=== PATIENT | female | born 1945 | race Caucasian/White ===

== ENCOUNTER → 2016-11-05 | Outpatient (REF) | payer MEDICARE, OTHER | LOC: M LAB REF 11:54 | PROVIDERS: ATTEND Physician Assistant Medical | DX: R30.0 Dysuria (principal) ==

== ENCOUNTER 2017-03-15 09:22 | Outpatient (REF) | payer MEDICARE, OTHER ==
[2017-04-12 21:51] LABS: APPEARANCE, URINE CLEAR (CLEAR); BACTERIA, URINE AUTO NEGATIVE (NEGATIVE); BILIRUBIN, URINE AUTO NEGATIVE (NEGATIVE); BLOOD, URINE BLOOD NEGATIVE (NEGATIVE); COLOR, URINE COLORLESS (YELLOW); GLUCOSE, URINE (UA) AUTO NEGATIVE (NEGATIVE); KETONE, URINE AUTO NEGATIVE (NEGATIVE); LEUKOCYTE ESTERASE, URINE AUTO NEGATIVE (NEGATIVE); NITRITE, URINE AUTO NEGATIVE (NEGATIVE); PROTEIN, URINE AUTO NEGATIVE (NEGATIVE); RBC, URINE AUTO 0 /HPF (0-3); SPECIFIC GRAVITY URINE AUTO 1.002 (1.002-1.035); SQUAMOUS EPITHELIAL CELL UR AU 2 /HPF (0-6); UROBILINOGEN, URINE AUTO 0.2 mg/dL (0.0-2.0); WBC, URINE AUTO 0 /HPF (0-3)
== END 2017-04-12 ==
LOC: M LAB REF 09:22
DX: N39.0 Urinary tract infection, site not specified (principal)
CPT/HCPCS: 81001

== ENCOUNTER → 2017-03-29 | Outpatient (REF) | payer MEDICARE, OTHER ==
[2017-03-29 22:33] LABS: APPEARANCE, URINE HAZY (CLEAR); BACTERIA, URINE AUTO 1+ (NEGATIVE); BILIRUBIN, URINE AUTO NEGATIVE (NEGATIVE); BLOOD, URINE BLOOD 2+ (NEGATIVE); COLOR, URINE YELLOW (YELLOW); GLUCOSE, URINE (UA) AUTO NEGATIVE (NEGATIVE); KETONE, URINE AUTO NEGATIVE (NEGATIVE); LEUKOCYTE ESTERASE, URINE AUTO 3+ (NEGATIVE); MUCUS, URINE SMALL (NEGATIVE); NITRITE, URINE AUTO NEGATIVE (NEGATIVE); PROTEIN, URINE AUTO NEGATIVE (NEGATIVE); RBC, URINE AUTO 4 /HPF (0-3); SPECIFIC GRAVITY URINE AUTO 1.017 (1.002-1.035); SQUAMOUS EPITHELIAL CELL UR AU 1 /HPF (0-6); UROBILINOGEN, URINE AUTO 0.2 mg/dL (0.0-2.0); WBC, URINE AUTO TNTC /HPF (0-3)
== END ==
LOC: M LAB REF 08:51
DX: N39.0 Urinary tract infection, site not specified (principal)
CPT/HCPCS: 81001

== ENCOUNTER → 2017-05-04 | Outpatient (REF) | payer MEDICARE, OTHER | LOC: M LAB REF 16:47 | DX: N39.0 Urinary tract infection, site not specified (principal); N76.0 Acute vaginitis | CPT/HCPCS: 87086 ==

== ENCOUNTER → 2017-05-19 | Outpatient (REF) | payer MEDICARE, OTHER ==
[2017-05-19 15:06] LABS: APPEARANCE, URINE HAZY (CLEAR); BACTERIA, URINE AUTO NEGATIVE (NEGATIVE); BILIRUBIN, URINE AUTO NEGATIVE (NEGATIVE); BLOOD, URINE BLOOD NEGATIVE (NEGATIVE); COLOR, URINE YELLOW (YELLOW); GLUCOSE, URINE (UA) AUTO NEGATIVE (NEGATIVE); KETONE, URINE AUTO NEGATIVE (NEGATIVE); LEUKOCYTE ESTERASE, URINE AUTO TRACE (NEGATIVE); NITRITE, URINE AUTO NEGATIVE (NEGATIVE); PROTEIN, URINE AUTO NEGATIVE (NEGATIVE); RBC, URINE AUTO 1 /HPF (0-3); SPECIFIC GRAVITY URINE AUTO 1.017 (1.002-1.035); SQUAMOUS EPITHELIAL CELL UR AU 10 /HPF (0-6); UROBILINOGEN, URINE AUTO 0.2 mg/dL (0.0-2.0); WBC, URINE AUTO 4 /HPF (0-3)
== END ==
LOC: M SMT 13:30
DX: R30.0 Dysuria (principal)
CPT/HCPCS: 81001

== ENCOUNTER → 2018-05-11 | Outpatient (REF) | payer MEDICARE, OTHER ==
[2018-05-11 14:06] LABS: APPEARANCE, URINE TURBID (CLEAR); BACTERIA, URINE AUTO 1+ (NEGATIVE); BILIRUBIN, URINE AUTO NEGATIVE (NEGATIVE); BLOOD, URINE BLOOD 3+ (NEGATIVE); COLOR, URINE AMBER (YELLOW); GLUCOSE, URINE (UA) AUTO NEGATIVE (NEGATIVE); KETONE, URINE AUTO TRACE mg/dL (NEGATIVE); LEUKOCYTE ESTERASE, URINE AUTO 3+ (NEGATIVE); MUCUS, URINE SMALL (NEGATIVE); NITRITE, URINE AUTO POSITIVE (NEGATIVE); PROTEIN, URINE AUTO 2+ mg/dL (NEGATIVE); RBC, URINE AUTO TNTC /HPF (0-3); SPECIFIC GRAVITY URINE AUTO 1.023 (1.002-1.035); SQUAMOUS EPITHELIAL CELL UR AU 31 /HPF (0-6); TRANSITIONAL EPITHELIAL AUTO 10 /HPF; WBC, URINE AUTO TNTC /HPF (0-3)
== END ==
LOC: M LAB REF 12:31
PROVIDERS: ATTEND Physician Assistant Medical
DX: N39.0 Urinary tract infection, site not specified (principal)

== ENCOUNTER → 2018-05-24 | Outpatient (REF) | payer MEDICARE, OTHER | LOC: M LAB REF 16:16 | PROVIDERS: ATTEND Internal Medicine | DX: N39.0 Urinary tract infection, site not specified (principal) ==

== ENCOUNTER → 2018-12-21 | Outpatient (REF) | payer MEDICARE, OTHER | LOC: M LAB REF 11:59 | PROVIDERS: ATTEND Internal Medicine | DX: J45.909 Unspecified asthma, uncomplicated (principal); N95.2 Postmenopausal atrophic vaginitis ==

== ENCOUNTER → 2019-01-18 | Outpatient (CLI) | payer MEDICARE, OTHER ==
--- NOTE | 2019-01-18 16:45 | REP ---
MRI cervical spine: New 01/18/2019. Indication: Cervical radiculopathy. Comparison: None. Technique: Multiplanar short and long TR sequences of the cervical spine were performed without IV Gadolinium. Findings: There is minimal retrolisthesis of C5 on C6 and C6 on C7. No worrisome marrow signal is present. The visualized cord is normal. The craniocervical junction is unremarkable. The vertebral artery flow voids are intact. C2/C3: There is no focal disc herniation or significant spinal canal / neural foraminal narrowing. C3/C4: Predominantly left-sided uncovertebral and facet hypertrophy results in moderate left neural foraminal narrowing. There is mild spinal canal narrowing particularly on the left. C4/C5: Right greater than left uncovertebral and facet hypertrophy are present with mild right neural foraminal narrowing. There is effacement of the ventral thecal sac. C5/C6: Diffuse disc osteophyte complex is present with moderate left and mild right neural foraminal narrowing. There is effacement of the ventral thecal sac. C6/C7: Diffuse disc osteophyte is present with mild to moderate left and mild right neural foraminal narrowing. There is no significant narrowing of the spinal canal. C7/T1: There is no focal disc herniation or significant spinal canal / neural foraminal narrowing. Impression: Multilevel degenerative sequelae of the cervical spine as described without significant spinal canal narrowing/cord compression. Please correlate with radicular level. Electronically Signed by Alfred Anglin DO 01/18/2019 04:37 P
--- NOTE | 2019-01-18 17:00 | REP ---
MRI lumbar spine: 01/18/2019. Indication: Low back pain. Lumbar radiculopathy. Comparison: 02/13/2011. Technique: Multiplanar short and long TR sequences of the lumbar spine were obtained without IV Gadolinium. Findings: There is levoscoliosis of the lumbar spine with the convexity centered at L3. Multilevel endplate degenerative sequelae are present most pronounced on the right at L3/L4. Disc desiccation and disc space narrowing are present throughout with the exception of L1/L2. The visualized cord is unremarkable. No worrisome marrow signal is present. No significant paraspinal soft tissue abnormalities are detected. L1/L2: There is no focal disc herniation or significant spinal canal / neural foraminal narrowing. L2/L3: Diffuse disc and spur complex and bilateral facet arthropathy are present with moderate to severe right and moderate left recess narrowing. There is moderate bilateral neural foraminal narrowing, more pronounced on the left. L3/L4: Diffuse disc and spur complex is present more pronounced on the right with bilateral facet arthropathy. There is moderate right recess narrowing. Moderate bilateral neural foraminal narrowing is present more pronounced on the right where the bulging disc does contact the exiting L3 nerve root. L4/L5: There is an asymmetric disc and spur complex more pronounced on the left with left greater than right facet arthropathy. There is severe left recess narrowing. Moderate to severe left neural foraminal narrowing is additionally noted. L5/S1: Bilateral facet arthropathy is present without significant spinal canal or neural foraminal narrowing. Impression: Multilevel degenerative sequelae of the lumbar spine most pronounced on the left at L4/L5. Scoliosis. Electronically Signed by Alfred Anglin DO 01/18/2019 04:51 P
== END ==
LOC: M RAD 13:04
PROVIDERS: ATTEND Nurse Practitioner Family
DX: M51.36 Other intervertebral disc degeneration, lumbar region (principal); M50.11 Cervical disc disorder with radiculopathy, high cervical region; M50.121 Cervical disc disorder at C4-C5 level with radiculopathy; M50.122 Cervical disc disorder at C5-C6 level with radiculopathy; M50.123 Cervical disc disorder at C6-C7 level with radiculopathy

== ENCOUNTER 2019-04-12 12:49 | Day surgery (SDC) | payer MEDICARE, OTHER ==
[~2019-04-12] VITALS: Ht 172.7 cm; Wt 78.5 kg
[~2019-04-12 12:49] MED LIST: ADV250INH INH; ALBU83IN INH; AMBI5TAB PO; FISH120016 PO; LIDOCAINE 2% INJ 100 MG/5 ML SDV (FOR ANES.) As Ordered ONE; MELO15TA28 PO; NS 1,000 ML IV ONE; PANT40TA3 PO; PROZ20CA11 PO; REDPOW XX; SYNT150T PO; VITA200028 PO; VITA500C24 PO; VITATAB73 PO; ZANT150T40 PO; propofoL 200 MG/20 ML VIAL As Ordered ONE
[2019-04-12] MEDS ORDERED: fentaNYL 100 MCG/2 ML INJECTION (J3010) As Ordered ONE (14:27)
--- NOTE | 2019-04-12 14:52 | ROOR ---
Patient Name: Madelyn Jin Procedure Date: 04/12/2019 2:25 PM Date of : 1945 Age: 74 Room: [facility] Gender: Female Note Status: Finalized Procedure: Upper GI endoscopy Indications: Dyspepsia, Heartburn Providers: Nilesh MILLAN MD Referring MD: Charlotte BAHENA MD Requesting Provider: Medicines: Monitored Anesthesia Care Complications: No immediate complications. Procedure: Pre-Anesthesia Assessment: - The heart rate, respiratory rate, oxygen saturations, blood pressure, adequacy of pulmonary ventilation, and response to care were monitored throughout the procedure. The Endoscope was introduced through the mouth, and advanced to the second part of duodenum. The upper GI endoscopy was accomplished without difficulty. The patient tolerated the procedure well. Findings: The esophagus was normal. The stomach was normal. The examined duodenum was normal. Several biopsies were obtained in the middle third of the esophagus and in the lower third of the esophagus with cold forceps for histology. Impression: - Normal esophagus. - Normal stomach. - Normal examined duodenum. - Several biopsies were obtained in the middle third of the esophagus and in the lower third of the esophagus. (- Note: I cannot appreciate any hiatal hernia today. You may possibly still have a tiny intermittent sliding hernia as noted on your previous CT scans, This is of dubious significance) Recommendation: - Continue present medications. - Plus use Gaviscon PO as directed PRN. - (the script was sent to your pharmacy on file) - Telephone endoscopist for pathology results in 2 weeks. Nilesh Millan MD Nilesh MILLAN MD 04/12/2019 2:51:19 PM Electronically signed by Nilesh MILLAN MD Number of Addenda: 0 Note Initiated On: 04/12/2019 2:25 PM Estimated Blood Loss: Estimated blood loss: none.
[2019-04-12 15:09] VITALS: BP 146/74
== END 2019-04-12 15:12 | disposition home or self-care (01) ==
LOC: M OPP 12:49
PROVIDERS: ATTEND Internal Medicine Gastroenterology
DX: K31.89 Other diseases of stomach and duodenum (principal); R12 Heartburn; Z79.899 Other long term (current) drug therapy; Z88.8 Allergy status to other drugs, medicaments and biological substances; Z91.011 Allergy to milk products; Z91.018 Allergy to other foods; Z85.3 Personal history of malignant neoplasm of breast; Z92.21 Personal history of antineoplastic chemotherapy; Z92.3 Personal history of irradiation
CPT/HCPCS: 43239; 88305; J3010

== ENCOUNTER → 2019-10-21 | Outpatient (CLI) | payer MEDICARE, OTHER ==
[~2019-10-21] MED LIST changes: +ECOT81TA5 PO; +FAMO1TAB25 PO; -LIDOCAINE 2% INJ 100 MG/5 ML SDV (FOR ANES.) As Ordered ONE; +MS C15TA8 PO; -NS 1,000 ML IV ONE; +PANT40TA29 PO; -PANT40TA3 PO; +PERC5TAB12 PO; +TRAM50TA2 PO; +VITA500045 PO; -propofoL 200 MG/20 ML VIAL As Ordered ONE
--- NOTE | 2019-10-27 11:38 | REP ---
MRI PELVIS HISTORY: Persistent right sciatica pain, left hip pain. FINDINGS: Multiple sequences obtained in the axial, coronal, and sagittal planes. There is fairly severe chondromalacia diffusely at the left hip joint. There is moderate subchondral marrow edema and mild subchondral cystic change in the left acetabulum. There is moderate diffuse subchondral marrow edema throughout the left femoral head. Subcortical signal in the left femoral head suggests an element of avascular necrosis. There is mild flattening of the left femoral head. There is diffuse tear of the left hip labrum. There is a moderate left hip joint effusion. There is adjacent synovial thickening. There is mild diffuse chondromalacia at the right hip joint. There is mild subchondral marrow edema in the superolateral acetabulum anteriorly. There is a relatively normal amount of joint fluid at the right hip. There is increased signal on T2 weighted images within the common hamstring tendon on the left adjacent to the left ischial tuberosity consistent with a high grade partial tear. Much more mild degree of increased signal is seen at the common hamstring tendon on the right adjacent to the ischial tuberosity suggesting a mild strain or partial tear. There is very mild increased signal and fluid along the greater trochanters bilaterally compatible with very mild bilateral greater trochanter tendinobursitis. Intrapelvic structures are unremarkable with no mass, adenopathy, or free fluid. The patient has had a hysterectomy. IMPRESSION: Severe arthritic changes left hip joint with subchondral marrow edema on both sides of the joint. The marrow edema extends through the left femoral head. There is subcortical signal in the left femoral head suggesting an element of avascular necrosis. There is mild flattening of the left femoral head. Diffuse tear of the left hip labrum. Moderate joint effusion with synovial thickening. Mild arthritic change right hip joint as discussed above. Findings most compatible with a high grade partial tear of the common hamstring tendon on the left adjacent to the ischial tuberosity. On the right, there are findings compatible with a mild strain or partial tear of the common hamstring tendon. There is a very mild bilateral greater trochanteric tendinobursitis. MTDD
== END ==
LOC: M RAD 13:17
PROVIDERS: ATTEND Nurse Practitioner Family
DX: M25.559 Pain in unspecified hip (principal)

== ENCOUNTER → 2019-10-26 | Outpatient (CLI) | payer MEDICARE, OTHER ==
[~2019-10-26] MED LIST changes: +PROHANCE 279.3MG/ML 15ML VIAL As Ordered ONE
--- NOTE | 2019-10-26 08:34 | REPVR ---
PROCEDURE INFORMATION: Exam: MR Lumbar Spine Without Contrast. Exam date and time: 10/26/2019 8:16 AM Age: 74 years old Clinical indication: Low back pain; Additional info: Radiculopathy, lumbar region TECHNIQUE: Imaging protocol: Multiplanar magnetic resonance images of the lumbar spine without intravenous contrast. COMPARISON: MRI-Spine, L.S. without con 01/18/2019 1:57 PM FINDINGS: Vertebrae: There is a mild levoscoliosis. Otherwise,The lumbar vertebral bodies are normal in height,signal intensity and alignment.No acute fracture or dislocation is seen. Spinal epidural space: There is no evidence of epidural masses or hemorrhage. Spinal cord: The conus medullaris is normal. The cauda equina nerve roots demonstrate no crowding or displacement. L1-L2: There is no significant degenerative disc herniation.The spinal canal and neural foramina are patent and without significant stenosis. L2-L3: Markedly reduced in height and T2 signal indicating degeneration. Moderate adjacent degenerative endplate changes. Small diffuse posterior herniation.The facet joints demonstrate moderate degenerative narrowing and sclerosis. There is thickening of the ligamentum flavum.There is mild spinal canal narrowing, with an AP canal dimension of 10 mm.There is moderate bilateral foraminal stenosis. L3-L4: Markedly reduced in height and T2 signal indicating degeneration. Moderate adjacent degenerative endplate changes. Small diffuse posterior herniation. The facet joints demonstrate moderate degenerative narrowing and sclerosis. There is thickening of the ligamentum flavum. There is mild spinal canal narrowing, with an AP canal dimension of 10 mm. There is mild left foraminal stenosis. There is severe right foraminal stenosis. There is compression on the right exiting nerve root. L4-L5: Mildly reduced in height and T2 signal indicating degeneration. Mild degenerative endplate changes. Small right and moderate left foraminal protrusion. Mild right and severe left facet arthropathy.There is mild spinal canal narrowing, with an AP canal dimension of 10 mm. There is mild right foraminal stenosis. There is severe left foraminal stenosis. There is compression on the left exiting nerve root. L5-S1: There is a mild diffuse posterior bulge causing mild effacement of the thecal sac.The facet joints demonstrate moderate degenerative narrowing and sclerosis. The spinal canal and neural foramina are patent and without significant stenosis. Soft tissues: The prevertebral soft tissues appear normal. IMPRESSION: MRI of the lumbar spine reveals interval progression of multilevel degenerative spondylitic changes and degenerative disc disease as described above. Electronically signed by: Ki Gentile On 10/26/2019 08:34:04 AM
== END ==
LOC: M RAD 07:07
PROVIDERS: ATTEND Nurse Practitioner Family
DX: M51.17 Intervertebral disc disorders with radiculopathy, lumbosacral region (principal); M25.559 Pain in unspecified hip; M47.26 Other spondylosis with radiculopathy, lumbar region

== ENCOUNTER → 2019-11-19 | Outpatient (CLI) | payer MEDICARE, OTHER ==
[~2019-11-19] MED LIST changes: -PROHANCE 279.3MG/ML 15ML VIAL As Ordered ONE
--- NOTE | 2019-11-24 07:16 | REP ---
CHEST X-RAY: TWO VIEWS HISTORY: Preop. COMPARISON: Comparison chest x-ray October 25, 2013. Prior history of asthma. FINDINGS: There are surgical clips in the left axillary soft tissues as before. There is mild left apical linear fibrosis unchanged. No infiltrate is seen. Lungs are well inflated and otherwise clear. There is pleuroparenchymal tenting of the left hemidiaphragm. Pleural angles are sharp. Heart size is normal. Pulmonary vasculature is not increased. Mild degenerative changes are seen in the thoracic spine. IMPRESSION: No acute disease. MTDD
== END ==
LOC: M RAD 13:29
PROVIDERS: ATTEND Orthopaedic Surgery
DX: M16.12 Unilateral primary osteoarthritis, left hip (principal)

== ENCOUNTER → 2019-11-22 | Outpatient (REF) | payer MEDICARE, OTHER ==
[2019-11-22 17:20] LABS: INR 1.06
== END ==
LOC: M LAB REF 16:11
PROVIDERS: ATTEND Internal Medicine
DX: Z01.818 Encounter for other preprocedural examination (principal)

== ENCOUNTER → 2019-11-23 | Outpatient (CLI) | payer MEDICARE, OTHER | LOC: M LABSMTC 10:10 | PROVIDERS: ATTEND Anesthesiology | DX: Z01.812 Encounter for preprocedural laboratory examination (principal); Z20.828 Contact with and (suspected) exposure to other viral communicable diseases | CPT/HCPCS: C9803; U0003 ==

== ENCOUNTER 2019-11-28 08:08 | Inpatient (IN) | payer MEDICARE, OTHER ==
--- NOTE | 2019-11-23 13:40 | CR ---
PRE-OPERATIVE CONSULTATION DATE: 11/22/2019 Charlotte Trejo MD, dictating a Pre-Operative Consultation for Mauricio Styles M.D. REASON FOR CONSULTATION: Left ASHLYN 11/28/2019 at [facility]. SUBJECTIVE: Thank you for asking me to see Ms. Madelyn Dyer in consultation prior to her left ASHLYN scheduled 11/28/2019. As you know Ms. Dyer is a 74-year-old female with a past medical history of asthma, breast cancer, OA, DJD who reports that she has been in her usual state of health except for progressive low back/hip pain since having fallen down 2 steps 05/17/2019. Patient reports the pain has been very severe, she has lost 25 pounds as a result of because of difficulties with sleep, depression and anorexia. She is eagerly looking forward to having the hip replacement. Patient has known history of asthma. Clinically she has been well controlled. She only takes Advair and bronchodilators as needed and she has not needed any recently. Patient has history of dyspepsia, has famotidine to take twice a day; she takes it 1-2 times a day depending on her symptoms. Patient has history of IBS, sparingly uses as needed. Patient has history of right shoulder pain. In 2013 she was told she needed surgery. She did not pursue this, but pain has recurred about a year ago. She is to have a cortisone injection at orthopedics tomorrow. Patient has known history of allergic rhinitis clinically controlled without using her Claritin or her Singulair. Patient does have history of depression which has been exacerbated by her pain. She continues on fluoxetine 20 mg daily. She has not been taking bupropion, uses this predominately for seasonal affective disorder. Patient has history of migraines, chronic, stable. She does have a prescription for Ambien and tries to use this sparingly. REVIEW OF SYSTEMS: Patient otherwise denies any fevers or chills, chest pain or shortness of breath, nausea or vomiting, change in bowels. PAST MEDICAL HISTORY: * Breast cancer 2001 status post lumpectomy with 1/6 lymph nodes positive, ER negative, AZ negative, HER2 positive. Chemotherapy completed 12/11, radiation completed 02/11. * Migraines. * Depression. * Sinus allergies. * Asthma. * Eczema. * Status post TAHBSO. * Urinary incontinence. * Fibrocystic breast disease. * OA DJD advanced in the lumbar, sacral and C-spine and severely arthritic left hip joint per MRI 10/21/2019 * Hemorrhagic cystitis. * Hiatal hernia/GERD. * Hypothyroid. * Hyperglycemia. * Hyperlipidemia. * Lung nodules followed by [facility] felt to be stable times 2 years. * Right rotator cuff tear 2013. * Right carpal tunnel 2014. * Right ulnar nerve neuropathy 2014. * 2013 palpitations with event monitor showing ventricular ectopy, but normal stress echo. * Right ulnar nerve transposition/right carpal tunnel release 06/15/14. * Osteopenia; alendronate started 12/24 with drug holiday 2017. MEDICATIONS: * Advair 250/50, 1 inhalation twice a day as needed. * Albuterol nebulizer as needed. * Ambien 5 mg at bedtime as needed. * B complex daily. * Budesonide nebulizer as needed. * Bupropion 75 mg daily seasonally * Butalbital acetaminophen as needed for migraines. * Calcium citrate daily. * Claritin 10 mg seasonally. * as needed for abdominal pain. * Famotidine 20 mg, 1-2 times a day. * Fish oil concentrate 1000 mg daily. * Fluoxetine 20 mg daily. * Gabapentin 600 mg twice a day as needed. * Levothyroxine 150 mcg daily. * Multivitamin daily. * Meloxicam 7.5 mg twice a day. * Montelukast 10 mg daily as needed. * Patanol eye drops as needed. * Red Yeast Rice 600 mg, 2 daily. * Tizanidine 2 mg as needed. * Tramadol 50 mg daily. * Ventolin as needed. * Vitamin C 500 mg daily as needed. * Vitamin D3 2000 IU, 2 daily. * Yuvafem 10 mcg vaginally 2 times a week. ALLERGIES: * ZYRTEC hives and facial itch. * CHROMIUM PICOLINATE - palpitations. 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 FAMILY HISTORY: Father had hypertension, of rheumatic heart disease at 75; mother had diabetes, osteoporosis, hypertension, afib, CHF, breast cancer; son alcoholism; daughter melanoma, migraines, hypertension, diabetes, obesity; brother asthma, diabetes, hypertension; another brother alcoholism; grandparents lung cancer, premature stroke, mental illness. PHYSICAL EXAMINATION: No acute distress. Vital signs: Weight 157 with a BMI of 24, O2 sat 98%, blood pressure 140/80 with a heart rate of 78. HEENT: Head is normocephalic. Pupils equal, reactive to light, external ocular movements are intact. Neck: Supple. No thyromegaly, JVD, cervical lymphadenopathy. Respiratory: Clear to auscultation, no wheezing, symmetric excursion. Breast exam: Deferred. Cardiovascular: Regular rate, rhythm, no murmur, rub, or gallop. Abdomen: Normal active bowel sounds, no hepatosplenomegaly. Extremities: No cyanosis, clubbing or edema, but some early OA changes of the DIP joints. Dermatologic: No rashes, bruises, abnormal lesions. Neurologic: Alert and oriented. Cranial nerves II-XII are intact. LABORATORY DATA: Pending including CBC, ESR, CMP, vitamin D and ProTime. RADIOLOGY STUDIES: EKG shows normal sinus rhythm, rate of 78, axis of 60, normal AZ, QRS, QTC interval, normal R-wave progression, borderline LAE, LVH, non- specific ST-T wave changes unchanged from previous EKG. IMPRESSION: Ms. Madelyn Briceño is a 74-year-old female with cardiovascular risk factors of diet controlled hypertension, hyperlipidemia, age, who is active and has no signs/symptoms indicative of cardiovascular ischemia. Risks: Patient is felt to be optimized and at low risk for cardiovascular complications. Her risks can be further minimized by the following: Problems: 1. Asthma: Start Advair twice a day until surgery, take out bronchodilator morning of surgery. 2. GERD: Take famotidine twice a day until surgery including morning of surgery. 3. Depression: Continue fluoxetine including morning of surgery. 4. Hypothyroid: Take levothyroxine morning of surgery. 5. OA DJD: I have asked her stop meloxicam 5-7 days prior to surgery and replace with Tylenol. I have approved her continued use of the tramadol and as needed use of the tizanidine, gabapentin. 6. Allergic rhinitis: Encourage aggressive use of saline. She will only add antihistamine and montelukast if needed. 7. Hyperlipidemia: She has refused statin. I have asked her to hold her fish oil 1 week prior to surgery. 8. Insomnia: I have approved the perioperative use of Ambien as necessary. 9. Hyperglycemia: Commended for weight loss and encouraged to continue. 10. IBS: Continue the p.r.n. . 11. Migraines: Are rare. Labs will be reviewed and an Addendum done if indicated of abnormalities. Thank you very much for his consultation. Please call with questions or concerns. [place]
--- NOTE | 2019-11-24 10:07 | HPE ---
DATE OF ANTICIPATED ADMISSION: 11/28/2019 ATTENDING PHYSICIAN: Mauricio Styles MD CHIEF COMPLAINT: Left hip pain and stiffness. HISTORY: This is a 74-year-old female patient with progressively worsening left hip pain and stiffness. She has failed to improve with conservative management. She has pain with weightbearing activities and activities of daily living. She has elected for surgery for her continued symptoms. She is consented by Dr. Styles for a left total hip arthroplasty. X-rays notable for end-stage degenerative changes of the left hip. Medical optimization by Dr. Trejo, not present for review today. ALLERGIES: ZYRTEC, she has severe headaches with ZOFRAN. CURRENT MEDICATIONS: Include: - Prozac 20 mg one tablet once per day - meloxicam 7.5 mg one tablet once per day, she will discontinue that 5 days prior - Synthroid 150 mcg one tablet once per day - oeca-kcc-ephohmc multivitamin, calcium, and vitamin D She also takes: - tramadol 50 mg as needed for pain - Ambien 5 mg as needed at bedtime - famotidine 5 mg one tablet twice a day MEDICAL CONDITIONS: Include symptomatic osteoarthritis of the left hip, asthma, vitamin D deficiency, depression, insomnia, hypothyroidism, gastric reflux disease. SURGICAL HISTORY: Includes lumpectomy, carpal tunnel release. FAMILY HISTORY: Hypertension, heart disease, arthritis, diabetes, cancer, thyroid disease. SOCIAL HISTORY: She is a former smoker. She does consume alcohol. 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 REVIEW OF SYSTEMS: Denies fever or chills. Denies chest pain, shortness of breath, or cough. Denies difficulty breathing. Denies nausea or vomiting. Denies exposure to COVID-19. Denies current upper respiratory infection (URI) or urinary tract infection (UTI) symptoms. Notes persistent pain with weightbearing activities on the left side. PHYSICAL EXAMINATION: Exam today reveals a patient that ambulates with a limping gait. She favors her left side. She uses a cane for ambulation. There is irritability with hip range of motion on the left side. Straight leg raising testing is negative. The calf is soft and nontender to palpation. She can sensate to light touch. Dorsalis pedis, posterior tibial pulses are palpable. The skin around the hip is intact, no erythema, edema, or ecchymosis. Neck is supple without adenopathy or jugular venous distension (JVD). Lungs are clear to auscultation without rales or wheeze. Heart: Regular rate and rhythm. Abdomen: Bowel sounds are present. Current vital signs: Blood pressure 110/60, pulse 68, respirations 17, temperature 96.6. IMPRESSION: Symptomatic osteoarthritis of the left hip. LABORATORY DATA: WBC count of 4.6, RBC count of 4.3, ProTime 14.0, INR 1.08, hemoglobin 13.3, hematocrit 38.3, glucose 117, BUN 20, creatinine 0.7, sodium 140, potassium 4.1. Her EKG, chest x-ray, and remaining labs are pending. PLAN: She is consented by Dr. Styles for a total hip arthroplasty on the left side. We went over the risks, benefits, pre- and postoperative instructions. We reviewed to discontinue all nonsteroidal anti-inflammatory drugs (NSAIDs) 5 days prior to surgery. We reviewed to take only her medications as directed by her primary. We discussed nothing by mouth and what nothing by mouth means. We discussed her arrival time and the importance to be on time and the location for her arrival time. All of her questions are answered. [place]
[2019-11-28] VITALS (8 sets, daily range): BP systolic 115–133; BP diastolic 69–73
[~2019-11-28] VITALS: Ht 171.4 cm; Wt 69.2 kg
[~2019-11-28 08:08] MED LIST changes: +ACETAMINOPHEN 500 MG TAB PO ONE; -ECOT81TA5 PO; +LIDOCAINE 1% MDV 20ML VIAL SQ PRN; +LR 1,000 ML IV ONE; -MS C15TA8 PO; -PERC5TAB12 PO; +ceFAZolin SOD 2 GM in IV 1 EA IV ONE
[2019-11-28] MEDS ORDERED: propofoL 200 MG/20 ML VIAL As Ordered ONE (08:25)
[2019-11-28] MEDS ORDERED: LIDOCAINE 2% 100MG/5ML SDV (FOR ANES.) As Ordered ONE (08:25)
[2019-11-28] MEDS ORDERED: MIDAZOLAM INJ 2MG/2ML VIAL (J2250 PER 1MG) As Ordered ONE (08:26)
[2019-11-28] MEDS ORDERED: fentaNYL 100 MCG/2 ML INJECTION (J3010) As Ordered ONE ×2 (08:26→12:22)
[2019-11-28] MEDS ORDERED: ceFAZolin 2 GM/D5W 50 ML IV BAG (J0690 PER 500MG) As Ordered ONE (08:47)
[2019-11-28] MEDS ORDERED: TRANEXAMIC ACID 100 MG/ML 10ML VIAL As Ordered ONE (08:49)
[2019-11-28] MEDS ORDERED: ceFAZolin 1GM VIAL (J0690 PER 500MG) As Ordered ONE (08:49)
[2019-11-28] MEDS ORDERED: EPINEPHrine INJ 1 MG/ML 1ML AMP As Ordered ONE (08:50)
[2019-11-28] MEDS ORDERED: KETAMINE HCL 200 MG/20 ML VIAL As Ordered ONE (11:00)
[2019-11-28] MEDS ORDERED: ACETAMINOPHEN 1000MG 100ML IV BTL (OFIRMEV) (J0131 PER 10MG) As Ordered ONE (11:05)
[2019-11-28] MEDS ORDERED: dexameTHASONE 4 MG/ML 1ML VIAL (J1100 PER 1MG) As Ordered ONE (11:06)
[2019-11-28] MEDS ORDERED: oxyCODONE 5MG TAB As Ordered ONE (12:22)
[2019-11-28] MEDS: oxyCODONE 5MG TAB PO PRN ×2 (12:25→13:10)
[2019-11-28] MEDS ORDERED: METOCLOPRAMIDE INJ 10MG/2ML VIAL (J2765 PER 1) IV PRN ×2 (12:30→17:45)
[2019-11-28] MEDS ORDERED: ONDANSETRON 4MG/2ML VIAL IV PRN (12:30)
[2019-11-28] MEDS ORDERED: LR 1,000 ML IV SCH (12:30)
[2019-11-28] MEDS ORDERED: PROMETHAZINE INJ 25 MG/ML VIAL (J2550) IV ONE (12:30)
[2019-11-28] MEDS ORDERED: ACETAMINOPHEN TAB 650MG DOSE (2X325MG) PO PRN (12:30)
[2019-11-28] MEDS ORDERED: fentaNYL 100 MCG/2 ML INJECTION (J3010) IV PRN (12:30)
[2019-11-28] MEDS ORDERED: PERCOCET 5MG/325MG TAB PO PRN ×3 (12:30→21:00)
[2019-11-28] MEDS ORDERED: MORPHINE 4 MG/ML 1ML VIAL/SYRINGE (J2270) IV PRN (12:30)
--- NOTE | 2019-11-28 12:49 | REPVR ---
PROCEDURE INFORMATION: Exam: XR Left Hip with Pelvis Exam date and time: 11/28/2019 12:38 PM Age: 74 years old Clinical indication: Device placement; Other: Post op; Additional info: Post op in pacu TECHNIQUE: Imaging protocol: XR Left hip Views: AP and cross-table lateral views. COMPARISON: MRI PELVIS WITHOUT CONTRAST 10/21/2019 2:09 PM FINDINGS: Bones/joints: Interval left bipolar hip hemiarthroplasty in good position without evidence of complication of placement. Soft tissues: Unremarkable. IMPRESSION: Postoperative changes as above. Electronically signed by: Christophe Clark On 11/28/2019 12:49:23 PM
[2019-11-28] MEDS ORDERED: PROMETHAZINE 25 MG TAB PO PRN (14:45)
[2019-11-28] MEDS: PROMETHAZINE INJ 25 MG/ML VIAL (J2550) IV PRN ×2 (15:00→19:51)
[2019-11-28] MEDS: MORPHINE 2 MG/ML 1ML VIAL (J2270) IV PRN ×3 (15:32→20:45)
--- NOTE | 2019-11-28 15:41 | RO ---
DATE OF OPERATION: 11/28/2019 PREOPERATIVE DIAGNOSIS: Left hip degenerative arthritis. POSTOPERATIVE DIAGNOSIS: Left hip degenerative arthritis. PROCEDURE: Left total hip arthroplasty using a size 56 GRIPTION Sector cup with a 40 mm neutral polyethylene liner and a size 7 Solomon standard offset stem with a 1.5 neck and a 40 mm ball. Prosthesis was made by [employer]. SURGEON: Reji Styles M.D. CONTROLS TECHNICIAN: KENDRA Galicia. ANESTHESIA: Spinal. COMPLICATIONS: None. SPECIMEN: Femoral head. ESTIMATED BLOOD LOSS: 200 mL. DESCRIPTION OF PROCEDURE: Antibiotics were given intravenously preoperative. Successful spinal anesthetic was induced. Then she was placed in the lateral decubitus position left hip upper most with a [place] hip positioner. Abdominal area well padded, especially the peroneal nerve and axillary roll was utilized. Her left hip area was then carefully prepped and draped in the usual sterile fashion. After appropriate time-out, a longitudinal incision was made for a direct lateral approach to the hip. Bovee cautery was used to coagulate the crossing vessels down to the tensor fascia, which was divided in line with the skin incision. We split the gluteus medius anterior one-third and posterior two- third junction and then underlying this, we divided the gluteus minimus and then carefully dissected off the proximal femur as we externally rotated the hip and then dislocated the hip and then dislocated it anteriorly. She had a very large anterior superior labral redundant tissue that was torn. Starter reamer was placed in the Piriformis fossa followed by the canal finding reamer then the lateralizing reamer. Then we reamed it to a size 7. Femoral neck osteotomy was performed using the template and then, we began broaching first with a size #4 broach advancing up to a size 7 eventually. Calcar planer was utilized. We then exposed the acetabulum and she had a fairly dysplastic hip. She is a bit superior and laterally subluxed. The labral excision was done 360 degrees and then, we began reaming beginning with 48 mm reamer first trying to reestablish our medial and inferior normal jackson acetabulum. Then from there, we expanded trying to bring her center of rotation back into the anatomic position. We expanded up to 55 mm. The trial 56 actually fit reasonably well, but I felt we should get the Sector cup in case screws were needed. We copiously irrigated several times and then using an extramedullary alignment jig, we inserted the Sector cup using the extra alignment jig to help set our version in abduction. Excellent fixation was felt to have been obtained and thus, I did not feel screws were necessary. The central hole eliminator was then placed followed by the trial polyethylene. We then irrigated out the femoral canal and placed the #7 broach. Then we trialed off this #7 broach. We first felt that by templating criteria a high offset stem would be what was called for; however, as I did trial with a lateral high offset stem with a 1.5 neck, she had excellent stability to flexion, internal rotation, extension and external rotation, and minimal if any soft tissue telescoping. However, I did test the abductors and the high offset stem actually made the abductors too snug or too tight actually, I felt, to be repaired back to their anatomic position on the trochanter. Thus, I felt the high offset stem may compromise her hip abduction function. Thus, I trialed with the standard offset 1.5 neck length and actually, this did allow the abductors to be closed more anatomically and the hip still remained stable with flexion, internal rotation, extension and external rotation, and it also did not have any significant soft tissue telescoping. Thus, I felt that this would be the appropriate size component to use. I then removed the trial broach, copiously irrigated out the femoral canal and the hip joint as I did several times throughout the operation, and placed the real #7 stem. Dried the trunnion and placed a 40 mm 1.5 ball, then reduced the hip after irrigating again, and then we began closing first the anterior hip capsule and gluteus minimus anatomically with interrupted #1 PDS sutures, closed the gluteus medius back anatomically in layers with interrupted #1 PDS suture, and then the tensor fascia was closed with a combination of #1 PDS suture and a running #1 STRATAFIX. We copiously irrigated again. It is noteworthy that tranexamic acid was injected deep into the capsule prior to beginning closure. We closed the deep subdermal tissue with interrupted 2-0 PDS sutures. Skin was closed with jairo covered by Optifoam and a dry sterile bulky dressing. She was then turned supine onto her bed and then transferred to the recovery room in stable condition. There were no intraoperative complications. KENDRA Galicia was critical for the success of this difficult procedure by helping with the appropriate soft tissue retraction, helping with dislocate and relocate the hip as needed, helped to prepare to the patient, helped to position the patient, and helped to close the wound amongst many other tasks to allow me to perform the operation smoothly, efficiently, and safely. [place]
[2019-11-28] MEDS: LR 1,000 ML IV SCH ×2 (15:57→22:30)
[2019-11-28] MEDS ORDERED: ALBUTEROL SULFATE 2.5 MG/0.5 ML INH NEB SOLN INH PRN (17:15)
[2019-11-28] MEDS ORDERED: PILL CUTTER 1 EACH XX PRN (17:30)
--- NOTE | 2019-11-28 18:17 | CR.PDOC ---
General Date of Consultation: Nov 28, 2019 Referring Provider: Reji Styles Primary Care Physician: Charlotte Trejo Attending Physician: HAMIDA BENNETT MD Consultation REASON FOR CONSULTATION/CHIEF COMPLAINT: Left hip total arthroplasty and management of chronic medical conditions. HISTORY OF PRESENT ILLNESS: Patient is a 74-year-old female presents to the hospital for a left hip total arthroplasty performed by Dr. Styles due to severe osteoarthritis of the left hip joint. Patient tolerated the surgery well and was moved up to the medical surgical floor for recovery and rehabilitation. Patient is concerned because she had a surgery in 2001 which led to very severe headache and nausea. Patient was asking for another medication or an increased dose of her medication for nausea. Patient is otherwise feeling well and although she did vomit earlier, she was eating dinner and tolerating this well. Patient denies having any headache. Patient says the morphine was working quite well for her. ALLERGIES: Please see below. HOME MEDICATIONS: Please see below. PAST MEDICAL HISTORY: 1. Breast cancer in 2001 status post lumpectomy with chemotherapy and radiation. 2. Depression 3. Migraines 4. Asthma 5. Osteoarthritis 6. Hypothyroidism 7. Hyperlipidemia 8. Seasonal allergies PAST SURGICAL HISTORY: 1. Lumpectomy and sentinel lymph node biopsy in 2001 2. Carpal tunnel release right hand 3. Appendectomy 4. Tonsillectomy 5. 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 Hematologic: Patient denies any easy bruising Lymphatic: Patient denies any lumps or bumps in her neck, axilla, or groin. PHYSICAL EXAMINATION: VITAL SIGNS: Please see below. General: Alert and oriented female who is laying in bed eating a sandwich when I walked in the room. Patient did not appear to be in any acute distress. HEENT: Normocephalic, atraumatic, moist mucous membranes. Neck: No lymphadenopathy or thyromegaly Cardiac: Regular rate and rhythm, no murmurs, normal S1, normal S2 Pulm: Clear to auscultation bilaterally. No wheezes, rhonchi, rales Abd: Nondistended, nontender to palpation, normal bowel sounds Ext: No edema bilateral lower extremities LABORATORY DATA: Please see below. ASSESSMENT/PLAN: Patient is a 74-year-old female who is postoperative from a left total hip arthroplasty for osteoarthritis of the hip. 1. Osteoarthritis of the hip, status post left hip arthroplasty. Pain management per orthopedic surgery. Continue with physical therapy. 2. Hypothyroidism. Continue Synthroid at home dose. 3. Nausea postoperatively. Patient has Phenergan 12-1/2 mg every 4 hours IV. I have added metoclopramide 10 mg every 6 hours as needed to be given if the patient needs extra medication after Phenergan. 4. Asthma. Patient brought her inhaler and this can be used. We'll continue other home medications. 5. Depression. Continue home medications of Prozac. 6. GERD. Continue famotidine. 7. History of hypertension, diet controlled. Continue to monitor. DVT prophylaxis: Per orthopedic surgery. Disposition: Pending physical therapy clearance and discharge by primary team orthopedic surgery. Thank you for this consultation and we will continue to follow the patient along with you. Vital Signs/I&O Vital Signs Date Time Temp Pulse Resp B/P (MAP) Pulse Ox O2 Delivery O2 Flow Rate FiO2 11/28/19 17:15 98.2 68 18 123/72 (89) 95 Room Air 11/28/19 12:50 2 Allergies Coded Allergies: cetirizine (Verified Allergy, Intermediate, hives, 11/24/19) Home Medications Scheduled Ascorbic Acid (Vitamin C) 500 Mg Capsule, 500 MG PO DAILY, (Reported) Aspirin (Ecotrin) 81 Mg Tablet., 81 MG PO BID for pain for 35 Days, #70 Ergocalciferol (Vitamin D2) (Vitamin D2) 1,250 Mcg Capsule, 2,000 MCG PO DAILY, (Reported) Famotidine (Famotidine) 10 Mg Tablet, 10 MG PO DAILY, (Reported) Fluoxetine HCl (Prozac) 20 Mg Capsule, 20 MG PO DAILY, (Reported) Levothyroxine Sodium (Synthroid) 150 Mcg Tablet, 150 MCG PO DAILY, (Reported) Morphine Sulfate (Ms Contin) 15 Mg Tablet.er, 1 TAB PO BID for pain for 2 Days, #4 [place]-3S/Dha/Epa/Fish Oil (Fish Oil EC 1,200 mg Softgel) 1 Each Capsule.dr, 1 CAP PO DAILY, (Reported) Red Yeast Rice Extract (Red Yeast Rice Extract) 1,000 Gm Powder, 1 POW XX DAILY, (Reported) Salmeterol/Fluticasone (Advair 250-50 Diskus) 1 Each Blst.w.dev, 1 PUFF INH BID, (Reported) Tramadol HCl (Tramadol HCl) 50 Mg Tablet, 50 MG PO PRN, (Reported) Vitamin B Complex (Vitamin B Complex) 1 Each Tablet, 1 TAB PO DAILY, (Reported) Scheduled PRN Albuterol Sulf (Albuterol Sulfate) 2.5 Mg/3 Ml Vial.neb, 2.5 MG INH Q4HP PRN for WHEEZING, (Reported) Oxycodone HCl/Acetaminophen (Percocet 5-325 mg Tablet) 1 Each Tablet, 1-2 TAB PO Q4H PRN for PAIN, #30 Zolpidem Tartrate (Ambien) 5 Mg Tablet, 5 MG PO QHSP PRN for SLEEP, (Reported) GME ATTESTATION GME ATTESTATION My faculty preceptor for this patient encounter was physically present during the encounter and was fully available. All aspects of the patient interview, examination, medical decision making process, and medical care plan development were reviewed and approved by the faculty preceptor. The faculty preceptor is aware and concurs with the plan as stated in the body of this note and will attest to such by his/her cosignature. ATTENDING NOTE Patient seen and examined independently. Agree with resident's note. JAH CHOWDHURY DO Nov 28, 2019 18:17 HAMIDA BENNETT MD Dec 19, 2019 14:29
[2019-11-28] MEDS: ceFAZolin SOD 2 GM in IV 1 EA IV SCH (18:27)
[2019-11-28] MEDS: ADVAIR HFA 115/21MCG INHALER INH SCH (20:04)
[2019-11-28] MEDS: PERCOCET 5MG/325MG TAB PO PRN (21:49)
[2019-11-29] MEDS: ceFAZolin SOD 2 GM in IV 1 EA IV SCH ×2 (01:39→08:51)
[2019-11-29 02:00] VITALS: BP 123/61
[2019-11-29] MEDS: PERCOCET 5MG/325MG TAB PO PRN ×4 (02:02→17:02)
[2019-11-29] MEDS: LEVOTHYROXINE 150MCG TABLET (0.15MG) PO SCH (05:46)
[2019-11-29 06:00] VITALS: BP 125/62
[2019-11-29 06:09] LABS: HEMATOCRIT 31.4 % (36.0-47.0); HEMOGLOBIN 10.8 g/dl (12.0-15.5); MEAN CORPUSCULAR HEMOGLOBIN 30.7 pg (27.0-33.0); MEAN CORPUSCULAR HGB CONC 34.4 g/dl (32.0-36.5); MEAN CORPUSCULAR VOLUME 89.2 fl (80.0-96.0); PLATELET COUNT, AUTOMATED 221 10^3/uL (150-450); RED BLOOD COUNT 3.52 10^6/uL (4.00-5.40); WHITE BLOOD COUNT 8.6 10^3/uL (4.0-10.0)
[2019-11-29 06:17] LABS: ALBUMIN 3.2 GM/DL (3.2-5.2); ALT/SGPT 24 U/L (12-78); BILIRUBIN,TOTAL 0.5 MG/DL (0.2-1.0); BLOOD UREA NITROGEN 11 MG/DL (7-18); CARBON DIOXIDE LEVEL 28 MEQ/L (21-32); CHLORIDE LEVEL 103 MEQ/L (98-107); CREATININE FOR GFR 0.64 MG/DL (0.55-1.30); GLOMERULAR FILTRATION RATE > 60.0 (>39); GLUCOSE, FASTING 137 MG/DL (70-100); POTASSIUM SERUM 4.3 MEQ/L (3.5-5.1); SODIUM LEVEL 135 MEQ/L (136-145); TOTAL PROTEIN 6.5 GM/DL (6.4-8.2)
[2019-11-29] MEDS ORDERED: ECOT81TA5 PO (06:19)
[2019-11-29] MEDS ORDERED: MS C15TA8 PO (06:19)
[2019-11-29] MEDS ORDERED: PERC5TAB12 PO (06:19)
[2019-11-29] MEDS: ADVAIR HFA 115/21MCG INHALER INH SCH ×2 (07:58→19:20)
[2019-11-29] MEDS: MOM 30ML SUSPENSION UDC PO SCH (08:48)
[2019-11-29] MEDS: FLUoxetine 20 MG CAP PO SCH (08:48)
[2019-11-29] MEDS: ASCORBIC ACID 500 MG TAB PO SCH (08:48)
[2019-11-29] MEDS: FAMOTIDINE 20 MG TAB PO SCH (08:49)
[2019-11-29] MEDS: ASPIRIN 81 MG ENTERIC TAB PO SCH ×2 (08:50→20:19)
[2019-11-29] MEDS: MORPHINE 15 MG SA TAB PO SCH ×2 (08:50→20:19)
[2019-11-29] MEDS: MIRALAX *UNIT DOSE* 17GM PACKET PO SCH (08:51)
[2019-11-29] MEDS ORDERED: ASPIRIN 325 MG TAB PO SCH (09:00)
[2019-11-29 10:00] VITALS: BP 120/61
[2019-11-29 14:00] VITALS: BP 119/58
--- NOTE | 2019-11-29 15:40 | IPNPDOC ---
Text Note Date of Service The patient was seen on 11/29/19. NOTE Subjective: Patient is a 74-year-old female with a PMHx of Breast CA (2001; s/p lumpectomy, chemotherapy, radiation), HTN, DLP, Asthma, Hypothyroidism, Seasonal allergies, Depression, Migraines, OA, who presented to [facility] for an elective left bipolar hip hemiarthroplasty with orthopedic surgery. Hospital service was consulted for medical management. Patient was seen and examined at the bedside. Currently patient reports that she has been out of bed therapy. Patient denies any chest pain, shortness breath, palpitations, nausea, vomiting, abdominal pain, diarrhea, or urinary discomfort. Objective: Vitals (See below) General: Lying in bed, no acute distress, comfortable, AAOx3 HEENT: NC, AT CVS: +S1S2 Lungs: Fair air entry b/l, -w/r/r Abdomen: Soft, ND, NT Extremities: - Edema, - Calf tenderness Assessment and plan: Left bipolar hip hemiarthroplasty (POD#1) - Patient has received outpatient medical clearance from her primary care provider - Pain control, anticoagulation and physical therapy at the direction of orthopedic surgery Breast CA - Dx 2001 - s/p lumpectomy, chemotherapy, radiation HTN - BP well controlled - currently not on medications; c/w dietary changes DLP - currently not on medications; Asthma - No evidence of exacerbation - Continue with inhaled therapy as ordered Hypothyroidism - c/w Levothyroxine Seasonal allergies Depression - c/w Fluoxetine Migraines - c/w Tylenol PRN OA - c/w Tylenol PRN GERD - c/w Famotidine DVT prophylaxis - as per orthopedic surgery VS,Cody, I+O VS, Ericbone, I+O Laboratory Tests 11/29/19 05:35 Vital Signs Date Time Temp Pulse Resp B/P (MAP) Pulse Ox O2 Delivery O2 Flow Rate FiO2 11/29/19 14:00 98.6 84 18 119/58 (78) 95 Room Air 11/28/19 20:45 97.0 I&O- Last 24 Hours up to 6 AM 11/29/19 06:00 Intake Total 4140 ml Output Total 1100 ml Balance 3040 ml KELSEY RUCKER MD Nov 29, 2019 15:40
[2019-11-29 18:00] VITALS: BP 116/58
[2019-11-29 22:00] VITALS: BP 121/69
[2019-11-30 02:00] VITALS: BP 126/70
[2019-11-30] MEDS: PERCOCET 5MG/325MG TAB PO PRN (03:30)
[2019-11-30 06:00] VITALS: BP 119/61
[2019-11-30] MEDS: LEVOTHYROXINE 150MCG TABLET (0.15MG) PO SCH (06:14)
[2019-11-30 06:20] LABS: HEMATOCRIT 30.3 % (36.0-47.0); HEMOGLOBIN 10.1 g/dl (12.0-15.5); MEAN CORPUSCULAR HEMOGLOBIN 30.1 pg (27.0-33.0); MEAN CORPUSCULAR HGB CONC 33.3 g/dl (32.0-36.5); MEAN CORPUSCULAR VOLUME 90.4 fl (80.0-96.0); PLATELET COUNT, AUTOMATED 206 10^3/uL (150-450); RED BLOOD COUNT 3.35 10^6/uL (4.00-5.40); WHITE BLOOD COUNT 8.1 10^3/uL (4.0-10.0)
[2019-11-30 06:36] LABS: ALT/SGPT 20 U/L (12-78); BILIRUBIN,TOTAL 0.6 MG/DL (0.2-1.0); BLOOD UREA NITROGEN 11 MG/DL (7-18); CALCIUM LEVEL 8.5 MG/DL (8.8-10.2); CARBON DIOXIDE LEVEL 27 MEQ/L (21-32); CHLORIDE LEVEL 103 MEQ/L (98-107); CREATININE FOR GFR 0.53 MG/DL (0.55-1.30); GLOMERULAR FILTRATION RATE > 60.0 (>39); GLUCOSE, FASTING 120 MG/DL (70-100); POTASSIUM SERUM 4.2 MEQ/L (3.5-5.1); SODIUM LEVEL 136 MEQ/L (136-145); TOTAL PROTEIN 6.5 GM/DL (6.4-8.2)
[2019-11-30] MEDS: FLUoxetine 20 MG CAP PO SCH (09:47)
[2019-11-30] MEDS: MIRALAX *UNIT DOSE* 17GM PACKET PO SCH (09:47)
[2019-11-30] MEDS: ASCORBIC ACID 500 MG TAB PO SCH (09:47)
[2019-11-30] MEDS: MOM 30ML SUSPENSION UDC PO SCH (09:47)
[2019-11-30] MEDS: ASPIRIN 81 MG ENTERIC TAB PO SCH (09:47)
[2019-11-30] MEDS: FAMOTIDINE 20 MG TAB PO SCH (09:47)
[2019-11-30] MEDS: MORPHINE 15 MG SA TAB PO SCH (09:48)
--- NOTE | 2019-12-09 13:46 | DS ---
DATE OF ADMISSION: 11/28/2019 DATE OF DISCHARGE: 11/29/2019 ATTENDING PHYSICIAN: Reji Styles MD. ADMITTING DIAGNOSIS: Left hip degenerative arthritis. OTHER DIAGNOSES: * Asthma. * Vitamin D deficiency. * Depression. * Insomnia. * Hypothyroidism. * Gastroesophageal reflux disease. DISCHARGE DIAGNOSIS: Left hip degenerative arthritis status post left total hip arthroplasty. HISTORY: Patient is a 74-year-old female that had progressively worsening left hip pain and stiffness. She failed to improve with conservative measures. She continued to have symptoms with weightbearing activities and activities of daily living. She consented for an elective left total hip arthroplasty with Dr. Styles for her continued symptoms. OPERATION PERFORMED: Left total hip arthroplasty. HOSPITAL COURSE: The patient underwent a left total hip arthroplasty under spinal anesthesia which was uneventful. Her hospital course was without complication and she was up with physical therapy per their protocol weightbearing as tolerated on the left lower extremity. Patient was discharged on oral pain medications and will resume her pre-operative medications and diet. She will use her thromboembolic deterrent stockings and take her anticoagulant post-operatively to prevent deep venous thrombosis. Patient will follow up in our office in 12-14 days for wound check and staple removal. She is encouraged to contact our office sooner if there is any increase in pain, redness, drainage, numbness or tingling in the extremity, fever greater than 101 degrees or any other concerns. Please see medical records for additional details. [place]
== END 2019-11-30 12:30 | disposition home or self-care (01) | DRG 470 ==
LOC: M OR 08:08 → M MS5PR 13:45
PROVIDERS: ADMIT Orthopaedic Surgery; ATTEND Orthopaedic Surgery
PROC: 0SRB0JA Replacement of Left Hip Joint with Synthetic Substitute, Uncemented, Open Approach (ICD-10-PCS; principal; 2019-11-28 09:55)
DX: M16.12 Unilateral primary osteoarthritis, left hip (principal); I10 Essential (primary) hypertension; J45.909 Unspecified asthma, uncomplicated; Z79.899 Other long term (current) drug therapy; Z87.891 Personal history of nicotine dependence; Z88.8 Allergy status to other drugs, medicaments and biological substances; E03.9 Hypothyroidism, unspecified; E55.9 Vitamin D deficiency, unspecified; F32.9 Major depressive disorder, single episode, unspecified; G47.00 Insomnia, unspecified; K21.9 Gastro-esophageal reflux disease without esophagitis; Z85.3 Personal history of malignant neoplasm of breast; Z92.21 Personal history of antineoplastic chemotherapy; Z92.3 Personal history of irradiation; G43.909 Migraine, unspecified, not intractable, without status migrainosus; K44.9 Diaphragmatic hernia without obstruction or gangrene; E78.5 Hyperlipidemia, unspecified; R91.8 Other nonspecific abnormal finding of lung field; L08.0 Pyoderma; R73.9 Hyperglycemia, unspecified

== ENCOUNTER → 2020-01-21 | Outpatient (CLI) | payer MEDICARE, OTHER ==
[~2020-01-21] MED LIST changes: -ACETAMINOPHEN 500 MG TAB PO ONE; +ECOT81TA5 PO; -LIDOCAINE 1% MDV 20ML VIAL SQ PRN; -LR 1,000 ML IV ONE; +MS C15TA8 PO; +PERC5TAB12 PO; -ceFAZolin SOD 2 GM in IV 1 EA IV ONE
== END ==
LOC: M LABSMTC 08:52
PROVIDERS: ATTEND Anesthesiology
DX: Z01.818 Encounter for other preprocedural examination (principal); Z20.828 Contact with and (suspected) exposure to other viral communicable diseases

== ENCOUNTER 2020-01-26 11:20 | Day surgery (SDC) | payer MEDICARE, OTHER ==
[~2020-01-26] VITALS: Ht 172.7 cm; Wt 71.2 kg
[~2020-01-26 11:20] MED LIST changes: +NS 1,000 ML IV ONE
[2020-01-26] MEDS ORDERED: LIDOCAINE 2% 100MG/5ML SDV (FOR ANES.) As Ordered ONE (12:48)
[2020-01-26] MEDS ORDERED: fentaNYL 100 MCG/2 ML INJECTION (J3010) As Ordered ONE (12:48)
[2020-01-26] MEDS ORDERED: propofoL 500 MG/50 ML VIAL As Ordered ONE (12:48)
--- NOTE | 2020-01-26 13:01 | ROOR ---
Patient Name: Madelyn Jin Procedure Date: 01/26/2020 12:37 PM Date of : 1945 Age: 74 Room: [facility] Gender: Female Note Status: Finalized Procedure: Upper GI endoscopy Indications: Generalized abdominal pain Providers: Saeid Miller Jr, MD Referring MD: Charlotte BAHENA MD Requesting Provider: Medicines: Propofol per Anesthesia Complications: No immediate complications. Procedure: Pre-Anesthesia Assessment: - Prior to the procedure, a History and Physical was performed, and patient medications and allergies were reviewed. The patient is competent. The risks and benefits of the procedure and the sedation options and risks were discussed with the patient. All questions were answered and informed consent was obtained. Patient identification and proposed procedure were verified by the physician and the nurse in the pre-procedure area and in the procedure room. Mental Status Examination: alert and oriented. Airway Examination: normal oropharyngeal airway and neck mobility. Respiratory Examination: clear to auscultation. CV Examination: normal. ASA Grade Assessment: II - A patient with mild systemic disease. After reviewing the risks and benefits, the patient was deemed in satisfactory condition to undergo the procedure. The anesthesia plan was to use moderate sedation / analgesia (conscious sedation). Immediately prior to administration of medications, the patient was re-assessed for adequacy to receive sedatives. The heart rate, respiratory rate, oxygen saturations, blood pressure, adequacy of pulmonary ventilation, and response to care were monitored throughout the procedure. The physical status of the patient was re-assessed after the procedure. The Endoscope was introduced through the mouth, and advanced to the second part of duodenum. The upper GI endoscopy was accomplished without difficulty. The patient tolerated the procedure well. Findings: The upper third of the esophagus, middle third of the esophagus and lower third of the esophagus were normal. The cardia, gastric fundus, gastric body, prepyloric region of the stomach and pylorus were normal. Localized mild inflammation characterized by congestion (edema), erythema and friability was found in the gastric antrum. Biopsies were taken with a cold forceps for histology. The duodenal bulb, first portion of the duodenum and second portion of the duodenum were normal. Impression: - Normal upper third of esophagus, middle third of esophagus and lower third of esophagus. - Normal cardia, gastric fundus, gastric body, prepyloric region of the stomach and pylorus. - Gastritis. Biopsied. - Normal duodenal bulb, first portion of the duodenum and second portion of the duodenum. Recommendation: - Discharge patient to home (ambulatory). - Return to my office as previously scheduled. Procedure Code(s): --- Professional --- 64408, Esophagogastroduodenoscopy, flexible, transoral; with biopsy, single or multiple Diagnosis Code(s): --- Professional --- K29.70, Gastritis, unspecified, without bleeding R10.84, Generalized abdominal pain CPT copyright 2019 [employer]. All rights reserved. The codes documented in this report are preliminary and upon tutor coordinator review may be revised to meet current compliance requirements. Saeid Miller MD Saeid Miller Jr, MD 01/26/2020 1:00:50 PM Electronically signed by Saeid Miller Jr, MD Number of Addenda: 0 Note Initiated On: 01/26/2020 12:37 PM Estimated Blood Loss: Estimated blood loss: none.
--- NOTE | 2020-01-26 13:23 | ROOR ---
Patient Name: Madelyn Jin Procedure Date: 01/26/2020 12:42 PM Date of : 1945 Age: 74 Room: [facility] Gender: Female Note Status: Finalized Procedure: Colonoscopy Indications: Abdominal pain in the left lower quadrant Providers: Saeid Miller Jr, MD Referring MD: Charlotte BAHENA MD Requesting Provider: Medicines: Propofol per Anesthesia Complications: No immediate complications. Procedure: Pre-Anesthesia Assessment: - Prior to the procedure, a History and Physical was performed, and patient medications and allergies were reviewed. The patient is competent. The risks and benefits of the procedure and the sedation options and risks were discussed with the patient. All questions were answered and informed consent was obtained. Patient identification and proposed procedure were verified by the physician and the nurse in the pre-procedure area and in the procedure room. Mental Status Examination: alert and oriented. Airway Examination: normal oropharyngeal airway and neck mobility. Respiratory Examination: clear to auscultation. CV Examination: normal. ASA Grade Assessment: II - A patient with mild systemic disease. After reviewing the risks and benefits, the patient was deemed in satisfactory condition to undergo the procedure. The anesthesia plan was to use moderate sedation / analgesia (conscious sedation). Immediately prior to administration of medications, the patient was re-assessed for adequacy to receive sedatives. The heart rate, respiratory rate, oxygen saturations, blood pressure, adequacy of pulmonary ventilation, and response to care were monitored throughout the procedure. The physical status of the patient was re-assessed after the procedure. The Colonoscope was introduced through the anus and advanced to the cecum, identified by appendiceal orifice and ileocecal valve. The colonoscopy was performed without difficulty. The patient tolerated the procedure well. The quality of the bowel preparation was adequate. Findings: The rectum, recto-sigmoid colon, sigmoid colon, descending colon, transverse colon, ascending colon, cecum, appendiceal orifice and ileocecal valve appeared normal. Impression: - The rectum, recto-sigmoid colon, sigmoid colon, descending colon, transverse colon, ascending colon, cecum, appendiceal orifice and ileocecal valve are normal. - No specimens collected. Recommendation: - Discharge patient to home (ambulatory). - Repeat colonoscopy in 10 years for screening purposes. Procedure Code(s): --- Professional --- 45249, Colonoscopy, flexible; diagnostic, including collection of specimen(s) by brushing or washing, when performed (separate procedure) Diagnosis Code(s): --- Professional --- R10.32, Left lower quadrant pain CPT copyright 2019 [employer]. All rights reserved. The codes documented in this report are preliminary and upon structural steel shop supervisor review may be revised to meet current compliance requirements. Saeid Miller MD Saeid Miller Jr, MD 01/26/2020 1:22:34 PM Electronically signed by Saeid Miller Jr, MD Number of Addenda: 0 Note Initiated On: 01/26/2020 12:42 PM Estimated Blood Loss: Estimated blood loss: none.
[2020-01-26 13:50] VITALS: BP 114/56
== END 2020-01-26 14:00 | disposition home or self-care (01) ==
LOC: M OPP 11:20
PROVIDERS: ATTEND Surgery
DX: R10.32 Left lower quadrant pain (principal); K62.5 Hemorrhage of anus and rectum; R63.4 Abnormal weight loss; K59.00 Constipation, unspecified; K29.70 Gastritis, unspecified, without bleeding
CPT/HCPCS: 43239; 45378; 88305; J3010

== ENCOUNTER → 2020-02-14 | Outpatient (CLI) | payer SELFPAY ==
[~2020-02-14] MED LIST changes: -NS 1,000 ML IV ONE
== END ==
LOC: M LABSMTC 14:18
PROVIDERS: ATTEND Pediatrics
DX: Z20.822 Contact with and (suspected) exposure to COVID-19 (principal)

== ENCOUNTER 2020-04-10 20:18 | Emergency (ER) | payer MEDICARE, OTHER ==
[~2020-04-10] VITALS: Ht 172.7 cm; Wt 77.0 kg
[2020-04-10] MEDS ORDERED: TIZA2CAP PO (20:29)
[2020-04-10] MEDS ORDERED: GABA800T4 PO (20:29)
--- NOTE | 2020-04-10 20:58 | REPVR ---
PROCEDURE INFORMATION: Exam: XR Chest Exam date and time: 04/10/2020 8:51 PM Age: 75 years old Clinical indication: Chest pain; Type not specified TECHNIQUE: Imaging protocol: XR of the chest Views: 1 view. COMPARISON: CR Chest, 2 view PA, Lat 10/25/2013 1:10 PM FINDINGS: Lungs: Bilateral nodular apical pleuroparenchymal scarring. Lungs otherwise clear. Pleural spaces: Unremarkable. No pleural effusion. No pneumothorax. Heart/Mediastinum: Unremarkable. No cardiomegaly. Bones/joints: Unremarkable. IMPRESSION: No acute findings. Electronically signed by: Alvino Conte On 04/10/2020 20:58:23 PM
[2020-04-10 21:13] LABS: BASO % 0.5 % (0.0-1.0); EOS # 0.2 10^3/uL (0.0-0.5); EOS % 3.8 % (0.0-3.0); HEMATOCRIT 38.1 % (36.0-47.0); HEMOGLOBIN 12.8 g/dl (12.0-15.5); LYMPH # 2.4 10^3/uL (1.5-5.0); LYMPH % 38.8 % (24.0-44.0); MEAN CORPUSCULAR HGB CONC 33.6 g/dl (32.0-36.5); MEAN CORPUSCULAR VOLUME 86.2 fl (80.0-96.0); MONO # 0.6 10^3/uL (0.0-0.8); MONO % 9.7 % (2.0-8.0); NEUTROPHILS # 2.9 10^3/uL (1.5-8.5); PLATELET COUNT, AUTOMATED 235 10^3/uL (150-450); RED BLOOD COUNT 4.42 10^6/uL (4.00-5.40); WHITE BLOOD COUNT 6.1 10^3/uL (4.0-10.0)
[2020-04-10 21:23] LABS: INR 1.06
[2020-04-10 21:42] LABS: BLOOD UREA NITROGEN 23 MG/DL (7-18); CALCIUM LEVEL 9.2 MG/DL (8.8-10.2); CARBON DIOXIDE LEVEL 30 MEQ/L (21-32); CHLORIDE LEVEL 106 MEQ/L (98-107); CREATININE FOR GFR 0.86 MG/DL (0.55-1.30); GLOMERULAR FILTRATION RATE > 60.0 (>39); GLUCOSE, FASTING 134 MG/DL (70-100); POTASSIUM SERUM 3.7 MEQ/L (3.5-5.1); SODIUM LEVEL 140 MEQ/L (136-145)
[2020-04-10 22:00] LABS: ALBUMIN 4.1 GM/DL (3.2-5.2); ALT/SGPT 30 U/L (12-78); BILIRUBIN,DIRECT < 0.1 MG/DL (0.0-0.2); BILIRUBIN,TOTAL 0.2 MG/DL (0.2-1.0); CK-MB VALUE MASS 1.8 NG/ML (<3.6); CPK CREATINE PHOSPHOKINASE 84 U/L (26-192); LIPASE 115 U/L (73-393); MB/CK RELATIVE INDEX 2.14 (< OR =4); TOTAL PROTEIN 7.6 GM/DL (6.4-8.2); TROPONIN I < 0.02 NG/ML (< 0.10)
[2020-04-10 22:14] LABS: D-DIMER QUANT 706.03 ng/ml (<500)
[2020-04-10] MEDS ORDERED: ISOVUE-370 76% 100ML VIAL As Ordered ONE (22:50)
--- NOTE | 2020-04-10 23:34 | REPVR ---
PROCEDURE INFORMATION: Exam: CT Angiography Chest With Contrast Exam date and time: 04/10/2020 11:05 PM Age: 75 years old Clinical indication: Shortness of breath; Additional info: Tachycardia/ shortness of breath TECHNIQUE: Imaging protocol: Computed tomographic angiography of the chest with contrast. 3D rendering (Not supervised by radiologist): MIP and/or 3D reconstructed images were created by the technologist. Radiation optimization: All CT scans at this facility use at least one of these dose optimization techniques: automated exposure control; mA and/or kV adjustment per patient size (includes targeted exams where dose is matched to clinical indication); or iterative reconstruction. Contrast material: ISOVUE 370; Contrast volume: 75 ml; Contrast route: INTRAVENOUS (IV); COMPARISON: CR PORTABLE CHEST X-RAY 04/10/2020 8:49 PM FINDINGS: Pulmonary arteries: No focal pulmonary artery filling defect to suggest acute pulmonary embolus. Aorta: No thoracic aortic aneurysm or dissection. Lungs: Pulmonary vascular/interstitial pattern does not suggest active pulmonary edema. No suspicious lung mass or air space process. No central endobronchial lesion. Pleural spaces: No pleural effusion or pneumothorax. Scarring is present at the left lung apex, with pleural calcifications. Heart: No overt cardiac enlargement or abnormal volume of pericardial fluid. Lymph nodes: No enlarged mediastinal lymph nodes. Bones/joints: Bony structures show no acute fracture or destructive process. Soft tissues: Left axillary surgical clips are present. IMPRESSION: 1. No evidence of acute pulmonary embolus. 2. No other acute or concerning focal intrathoracic abnormality. 3. Pleural based and parenchymal scarring at the left lung apex with dystrophic calcifications and left hilar elevation. Electronically signed by: Christiano Mckenna On 04/10/2020 23:34:58 PM
[2020-04-11 00:09] LABS: MAGNESIUM LEVEL 2.2 MG/DL (1.8-2.4)
[2020-04-11] MEDS ORDERED: METO1TAB87 PO (01:09)
[2020-04-11 01:36] VITALS: BP 167/74
--- NOTE | 2020-04-13 07:49 | ECGEPIP ---
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
== END 2020-04-11 01:38 | disposition home or self-care (01) ==
LOC: M ED 20:18
DX: I47.1 Supraventricular tachycardia (principal); R91.8 Other nonspecific abnormal finding of lung field; G43.909 Migraine, unspecified, not intractable, without status migrainosus; E78.5 Hyperlipidemia, unspecified; F32.9 Major depressive disorder, single episode, unspecified; J45.909 Unspecified asthma, uncomplicated; Z87.891 Personal history of nicotine dependence; Z79.899 Other long term (current) drug therapy; Z88.8 Allergy status to other drugs, medicaments and biological substances
CPT/HCPCS: 71045; 71275; 80048; 80076; 82550; 82553; 83690; 83735; 84484; 85025; 85379; 85610; 93005; 93041; 94760; 99285; Q9967

== ENCOUNTER 2020-04-15 17:09 | Emergency (ER) | payer MEDICARE, OTHER ==
[~2020-04-15] VITALS: Ht 172.7 cm; Wt 77.2 kg
[~2020-04-15 17:09] MED LIST changes: +GABA800T4 PO; +METO1TAB87 PO; +TIZA2CAP PO
[2020-04-15 18:19] LABS: BASO % 0.6 % (0.0-1.0); EOS # 0.3 10^3/uL (0.0-0.5); EOS % 5.8 % (0.0-3.0); HEMATOCRIT 35.7 % (36.0-47.0); HEMOGLOBIN 12.1 g/dl (12.0-15.5); LYMPH # 2.1 10^3/uL (1.5-5.0); LYMPH % 39.7 % (24.0-44.0); MEAN CORPUSCULAR HEMOGLOBIN 29.3 pg (27.0-33.0); MEAN CORPUSCULAR HGB CONC 33.9 g/dl (32.0-36.5); MEAN CORPUSCULAR VOLUME 86.4 fl (80.0-96.0); MONO # 0.4 10^3/uL (0.0-0.8); MONO % 8.2 % (2.0-8.0); NEUTROPHILS # 2.5 10^3/uL (1.5-8.5); NEUTROPHILS % 45.5 % (36.0-66.0); PLATELET COUNT, AUTOMATED 245 10^3/uL (150-450); RED BLOOD COUNT 4.13 10^6/uL (4.00-5.40); WHITE BLOOD COUNT 5.4 10^3/uL (4.0-10.0)
[2020-04-15 18:34] LABS: BLOOD UREA NITROGEN 19 MG/DL (7-18); CALCIUM LEVEL 8.6 MG/DL (8.8-10.2); CARBON DIOXIDE LEVEL 27 MEQ/L (21-32); CHLORIDE LEVEL 107 MEQ/L (98-107); CK-MB VALUE MASS 2.9 NG/ML (<3.6); CPK CREATINE PHOSPHOKINASE 116 U/L (26-192); CREATININE FOR GFR 0.69 MG/DL (0.55-1.30); FREE T4 1.24 NG/DL (0.76-1.46); GLOMERULAR FILTRATION RATE > 60.0 (>39); GLUCOSE, FASTING 138 MG/DL (70-100); POTASSIUM SERUM 3.7 MEQ/L (3.5-5.1); SODIUM LEVEL 140 MEQ/L (136-145); THYROID STIMULATING HORMONE 0.514 uIU/ML (0.358-3.740); TROPONIN I < 0.02 NG/ML (< 0.10)
[2020-04-15] MEDS ORDERED: FLEC50HA PO (18:59)
[2020-04-15 19:00] VITALS: BP 134/70
--- NOTE | 2020-04-16 15:53 | ECGEPIP ---
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
== END 2020-04-15 19:34 | disposition home or self-care (01) ==
LOC: M ED 17:09
DX: I47.9 Paroxysmal tachycardia, unspecified (principal); Z87.891 Personal history of nicotine dependence; Z79.899 Other long term (current) drug therapy; Z88.8 Allergy status to other drugs, medicaments and biological substances

== ENCOUNTER → 2020-05-14 | Outpatient (REF) | payer MEDICARE, OTHER ==
[~2020-05-14] MED LIST changes: +FLEC50HA PO
== END ==
LOC: M LAB REF 16:18
PROVIDERS: ATTEND Internal Medicine
DX: R00.2 Palpitations (principal)

== ENCOUNTER → 2021-01-25 | Outpatient (REF) | payer MEDICARE, OTHER ==
[~2021-01-25] MED LIST changes: +FAMO10TA50 PO; -FAMO1TAB25 PO
== END ==
LOC: M LAB REF 15:59
PROVIDERS: ATTEND Registered Nurse
DX: N76.0 Acute vaginitis (principal)

== ENCOUNTER → 2021-05-14 | Outpatient (CLI) | payer MEDICARE, OTHER | LOC: M RAD 13:50 | PROVIDERS: ATTEND Internal Medicine | DX: R22.1 Localized swelling, mass and lump, neck (principal); I65.23 Occlusion and stenosis of bilateral carotid arteries; M89.8X9 Other specified disorders of bone, unspecified site ==

== ENCOUNTER → 2023-08-20 | Outpatient (CLI) | payer MEDICARE, OTHER ==
[~2023-08-20] MED LIST changes: +ALBU2.5V10 INH; -ALBU83IN INH
== END ==
LOC: M RAD 13:54
PROVIDERS: ATTEND Urology
DX: R39.198 Other difficulties with micturition (principal); N13.30 Unspecified hydronephrosis

== ENCOUNTER → 2024-06-01 | Outpatient (REF) | payer MEDICARE, OTHER ==
[~2024-06-01] MED LIST changes: -ADV250INH INH; +ADVA1AER9 INH; -AMBI5TAB PO; +GABA-1635 PO; -GABA800T4 PO; +ZOLP-532 PO
== END ==
LOC: M LAB REF 13:20
PROVIDERS: ATTEND Internal Medicine
DX: R10.9 Unspecified abdominal pain (principal)

== ENCOUNTER → 2024-06-17 | Outpatient (CLI) | payer MEDICARE, OTHER | LOC: M RAD 10:58 | PROVIDERS: ATTEND Internal Medicine | DX: G43.909 Migraine, unspecified, not intractable, without status migrainosus (principal); R90.82 White matter disease, unspecified ==

== ENCOUNTER → 2024-08-16 | Outpatient (REF) | payer MEDICARE, OTHER | LOC: M LAB REF 13:28 | PROVIDERS: ATTEND Internal Medicine | DX: G45.9 Transient cerebral ischemic attack, unspecified (principal) ==

== ENCOUNTER 2024-09-15 06:33 | Day surgery (SDC) | payer MEDICARE, OTHER ==
[~2024-09-15] VITALS: Ht 172.7 cm; Wt 71.7 kg
[~2024-09-15 06:33] MED LIST changes: +BUPR75TA5 PO; +FAMO1TAB11 PO; +GABA-1490 PO; +MONT10TA97 PO; +OMEP-173 PO; +ONDA-284; -PROZ20CA11 PO; +PROZ20CA12 PO; +REDPOW PO; -REDPOW XX; +ROSU10TA61 PO
[2024-09-15] MEDS ORDERED: LIDOCAINE 2% INJ 100 MG/5 ML SYRINGE As Ordered ONE (07:45)
[2024-09-15 08:46] VITALS: BP 117/77; TEMP 97.1; O2SAT 98
== END 2024-09-15 08:50 | disposition home or self-care (01) ==
LOC: M OPP 06:33
PROVIDERS: ATTEND Surgery
DX: Z12.11 Encounter for screening for malignant neoplasm of colon (principal); D12.6 Benign neoplasm of colon, unspecified; K31.7 Polyp of stomach and duodenum; Q43.8 Other specified congenital malformations of intestine; Z84.81 Family history of carrier of genetic disease; Z83.710 Family history of adenomatous and serrated polyps; Z88.8 Allergy status to other drugs, medicaments and biological substances; Z79.82 Long term (current) use of aspirin; Z79.899 Other long term (current) drug therapy; Z86.73 Personal history of transient ischemic attack (TIA), and cerebral infarction without residual deficits; J45.909 Unspecified asthma, uncomplicated